=== PATIENT | female | born 1960 | race Caucasian/White ===

== ENCOUNTER → 2017-05-28 15:20 | Outpatient (CLI) | payer OTHER, SELFPAY ==
--- NOTE | 2017-05-28 13:45 | CER_PTH ---
PATIENT: KEMAL WASHBURN LOC: [facility] U#:[id number] AGE/SX: 64/F ROOM: RE05/28/[address]: Dr. Fabien Travis MD : 1960 BED: DIS: SPEC #: [id number] RECD: 05/28/17 15:06 STATUS: IZABELA ISABELLA #: [id number] KANE: 05/28/17 13:[address]: Fabien Travis DEPT: SURGICAL PATHOLOGY RECD BY: Jace Griffin Tissues: A - Uterine cervix, NOS B - Endocervical C - Endometrium, NOS Procedures: Surgery Specimen Level IV HEADER OPERATION: Cervical biopsy 12 o?clock, ECC, endometrial biopsy PRE-OP DIAGNOSIS: R87.610, N95.0 TISSUE SUBMITTED: A - Cervical biopsy 12 o?clock, B ? ECC, C ? Endometrial biopsy MICROSCOPIC DIAGNOSIS A. Cervix, 12 o?clock, biopsy: Fragments of benign ecto- and endocervical mucosa with chronic inflammation, negative for dysplasia. B. ECC: Fragments of endometrial adenocarcinoma, endometrioid type, FIGO grade I. C. Endometrial biopsy: Endometrial adenocarcinoma, endometrioid type, FIGO grade I. LIZETH:anibal 06/01/17 MICROSCOPIC DESCRIPTION Slides are reviewed. GROSS DESCRIPTION A - Received in fixative is one container labeled with the patient's name and designated cervical biopsy 12 o'clock. The specimen consists of multiple irregular fragments of light manriquez soft tissue mixed with mucoid tissue that in aggregate measure 0.3 x 0.2 x 0.1 cm. The specimen is totally submitted in one cassette. B - Received in fixative is one container labeled with the patient's name and designated ECC. The specimen consists of multiple fragments of hemorrhagic soft tissue that in aggregate measure 1.5 x 1 x 0.2 cm. The specimen is totally submitted in one cassette. C - Received in fixative is one container labeled with the patient's name and designated EM biopsy. The specimen consists of multiple fragments of hemorrhagic soft tissue that in aggregate measure 3 x 2.5 x 0.4 cm. The specimen is totally submitted in one cassette. / LIZETH:anibal 05/29/17 TC:0 CPT: 06273 x3
== END ==
PROVIDERS: Visit Provider Obstetrics & Gynecology
DX: R87.610 Atypical squamous cells of undetermined significance on cytologic smear of cervix (ASC-US) (principal)
CPT/HCPCS: 88305